=== PATIENT | male | born 2000 | race Caucasian/White ===

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

== ENCOUNTER 2018-07-06 09:57 | Emergency (ER) | payer OTHER ==
[~2018-07-06 09:57] MED LIST: IBUPROFEN800 M1 PO; MULTIVITAMINS1 EAC9 PO; NORCO 5-325 TA1 EACH PO; PENICILLIN V P500 M1 PO; TRAMADOL HCL50 M1 PO
[2018-07-06 10:01] VITALS: BP 160/91
--- NOTE | 2018-07-06 10:11 | ED ANKLE/FOOT INJURY COMPLAINT ---
History of Present Illness General Chief Complaint: Foot or Ankle Injury Stated Complaint: AT WORK DROPPED PALLET ON TOE, 6'-7' DROP Source: patient Exam Limitations: no limitations Vital Signs & Intake/Output Vital Signs & Intake/Output Vital Signs Date Time Temp Pulse Resp B/P B/P Pulse O2 O2 Flow FiO2 Mean Ox Delivery Rate 07/06 1001 97.5 75 15 160/91 98 Room Air Room Air Allergies Coded Allergies: No Known Allergies (07/06/18) Reconcile Medications No Known Home Medications Triage Note: PT TO ED FOR L GREAT TOE S/P WOODEN PALLET FALLING ON FOOT AT WORK THIS MORNING. Triage Nurses Notes Reviewed? yes Occurred: just prior to arrival Duration: hour(s):, constant Timing: single episode today Severity: moderate, severe Pain/Injury Location: Left: 1st toe. Method of Injury: direct blow No Modifying Factors: none HPI: 17-year-old male comes into the emergency room for further evaluation of left great toe pain. Patient reports that he was at work and a pallet coming off of the truck came down and fell on his left great toe. Some associated bleeding. Tetanus shot up-to-date. She was sent in for further evaluation. Mild throbbing. (Joey Dumont) Past History Travel History Traveled to [place] past 21 day No Medical History Any Pertinent Medical History? see below for history Neurological: NONE EENT: NONE Cardiovascular: NONE Respiratory: NONE Gastrointestinal: NONE Hepatic: NONE Renal: NONE Musculoskeletal: RIGHT CLAVICLE FRACTURE Psychiatric: NONE Endocrine: NONE Blood Disorders: NONE Cancer(s): NONE PNEUMATIC TOOL OPERATOR/Reproductive: NONE Surgical History Surgical History: non-contributory Psychosocial History What is your primary language Korean Tobacco Use: Never used ETOH Use: denies use Illicit Drug Use: denies illicit drug use Family History Hx Contributory? No (Joey Dumont) Review of Systems Review of Systems Constitutional: Reports: no symptoms. EENTM: Reports: no symptoms. Respiratory: Reports: no symptoms. Cardiovascular: Reports: no symptoms. GI: Reports: no symptoms. Genitourinary: Reports: no symptoms. Musculoskeletal: Reports: see HPI. Skin: Reports: no symptoms. Neurological/Psychological: Reports: no symptoms. Hematologic/Endocrine: Reports: see HPI. Immunologic/Allergic: Reports: no symptoms. All Other Systems: Reviewed and Negative (Joey Dumont) Physical Exam Physical Exam General Appearance: well developed/nourished, mild distress Head: atraumatic Eyes: Bilateral: normal appearance. Ears, Nose, Throat: normal ENT inspection, hearing grossly normal Neck: normal inspection Cardiovascular/Respiratory: no respiratory distress Back: normal inspection Leg/Knee/Thigh Left: normal inspection Ankle Left: normal inspection, normal range of motion Foot Left: Some mild bleeding to the medial lateral nail bed, full range of motion,SMALL SUBUNGUAL HEMATOMA Neuro/Vascular: normal motor function, normal sensation Psychiatric: awake, alert, oriented x 3 Skin: intact, normal color, warm/dry (Khari KEENAN,Joey) Progress Differential Diagnosis: fracture, dislocation, sprain, contusion Plan of Care: Orders Procedure Date/time Status XRY-TOES, LEFT 07/06 1010 Active Diagnostic Imaging: Viewed by Me: Radiology Read. Discussed w/RAD: Radiology Read. Radiology Impression: PATIENT: MARILY HEARD PRESENT AGE: 17 PATIENT ACCOUNT NO: [id number] : 98 LOCATION: [facility] ORDERING PHYSICIAN: Joey KEENAN SERVICE DATE: 07/06/18 EXAM TYPE : RAD - XRY-TOES, LEFT EXAMINATION: CR TOES, LEFT CLINICAL INFORMATION: Left great toe pain, swelling, bleeding. COMPARISON: Left toe films dated 03/15/2008. TECHNIQUE: 3 views of the left toes and frontal view of the left foot were obtained. FINDINGS: Prominent soft tissue swelling is seen involving the great toe. Underlying bone appears intact with no acute fracture or dislocation seen. No radiopaque foreign body is noted. Included bony structures are unremarkable. IMPRESSION: Positive soft tissue swelling about the great toe. No acute fracture or radiopaque foreign body. DICTATED BY: Lupis Bourne MD DATE/TIME DICTATED: 07/06/181051 CAMP BOSS:TUCKER DATE/TIME TRANSCRIBED:07/06/181051 CONFIDENTIAL, DO NOT COPY WITHOUT APPROPRIATE AUTHORIZATION. <Electronically signed in Other Vendor System> SIGNED BY: Lupis Bourne MD 07/06/18 1058 Comments: 07/06/2018 11:40:48 AM Patient clinically looks well. No evidence of acute fracture. There is mild damage to the lateral nail bed associated bleeding. The germinal matrix is intact. Small subungual hematoma. At this time patient will be discharged and follow-up with carpentry instructor. (Joey Dumont) Departure Departure Disposition: HOME OR SELF CARE Condition: Stable Clinical Impression Primary Impression: Contusion of right great toe with damage to nail Referrals: Romy CEVALLOS,Adan Raymundo (PCP/Family) Ayan Diallo DPM Additional Instructions: Take ibuprofen for pain. Follow-up with carpentry instructor provided. Return if any other concerns worsening symptoms. Follow-up with occupational medicine. Please go over all results of today's visit with your primary care doctor. Contact your primary care doctor to let them know you were here in the emergency room. There may be nonspecific findings which may not be related to your visit today here in the emergency room but may require further evaluation and chronic monitoring by your primary care doctor. If you had a laceration today the chance of foreign body always remains. You should follow-up with your primary care doctor for recheck in 3-5 days for a wound check. If you had an x-ray done there is a chance that a fracture could have been missed on initial read and you should follow-up with your primary care doctor for repeat x-rays if symptoms persist. If your blood pressure was elevated here in the emergency room please have rechecked by [facility] primary care doctor within the next 48. If you were prescribed a narcotic here in the emergency room or any type of controlled substances you're not allowed to drive while taking this medication or operate any type of heavy machinery. Narcotics can make you feel lightheaded dizziness nausea and can cause constipation. You may need to sheepskin pickler a stool softener. Thank you for choosing [facility] emergency room. Please return to the emergency room immediately if you have any other concerns worsening of symptoms. Departure Forms: Customer Survey General Discharge Information Industrial Accident Report Prescriptions: Current Visit Scripts No Known Home Medications (Joey Dumont) PA/GROCERY CLERK MARKING Co-Sign Statement Statement: ED Attending supervision documentation- [] I saw and evaluated the patient. I have also reviewed all the pertinent lab results and diagnostic results. I agree with the findings and the plan of care as documented in the PA's/GROCERY CLERK MARKING's documentation. [X] I have reviewed the ED Record and agree with the PA's/GROCERY CLERK MARKING's documentation. [] Additions or exceptions (if any) to the PAs/GROCERY CLERK MARKING's note and plan are summarized below: [] (Jean Vázquez DO)
--- NOTE | 2018-07-06 10:58 | RADIOLOGY REPORT ---
EXAMINATION: CR TOES, LEFT CLINICAL INFORMATION: Left great toe pain, swelling, bleeding. COMPARISON: Left toe films dated 03/15/2008. TECHNIQUE: 3 views of the left toes and frontal view of the left foot were obtained. FINDINGS: Prominent soft tissue swelling is seen involving the great toe. Underlying bone appears intact with no acute fracture or dislocation seen. No radiopaque foreign body is noted. Included bony structures are unremarkable. IMPRESSION: Positive soft tissue swelling about the great toe. No acute fracture or radiopaque foreign body.
== END 2018-07-06 11:24 ==
LOC: ERH 09:57
DX: S90.211A Contusion of right great toe with damage to nail, initial encounter (principal); W20.8XXA Other cause of strike by thrown, projected or falling object, initial encounter; Y92.89 Other specified places as the place of occurrence of the external cause; Y93.89 Activity, other specified
CPT/HCPCS: 73660-LT